=== PATIENT | male | born 1950 | race Caucasian/White ===

== ENCOUNTER 2017-11-24 13:29 | Outpatient (CLI) | payer MEDICARE | END 2017-11-24 13:30 | disposition home or self-care (01) | LOC: BICMRI 13:29 | PROVIDERS: ATTEND Orthopaedic Surgery | DX: M75.101 Unspecified rotator cuff tear or rupture of right shoulder, not specified as traumatic (principal); M75.81 Other shoulder lesions, right shoulder ==

== ENCOUNTER 2017-12-01 11:26 | Outpatient (CLI) | payer MEDICARE ==
[2017-12-01 13:03] LABS: #Basophils 0.1 thou/uL (0.0-0.2); #Eosinphils 0.2 thou/uL (0.0-0.7); #Lymphocytes 1.3 thou/uL (1.20-3.40); #Monocytes 0.5 thou/uL (0.11-0.59); #Neutrophils 2.5 thou/uL (1.40-6.50); %Basophils 1.5 % (0.0-1.0); %Eosinophils 4.5 % (0.0-10.0); %Lymphocytes 28.3 % (21.0-51.0); %Monocytes 10.3 % (0.0-10.0); %Neutrophils 55.3 % (42.0-75.0); Hemoglobin 15.5 g/dL (14.0-18.0); Mean Corpuscular HGB CONC 33.3 g/dL (32.0-36.0); Mean Corpuscular Hemoglobin 30.5 pg (27.0-31.0); Mean Corpuscular Volume 91.6 fl (80.0-94.0); Mean Platelet Volume 7.2 fL (7.4-10.4); Platelet Count 206 thou/uL (130-400); RBC Distribution Width 12.6 % (11.5-14.5); Red Blood Cell (RBC) Count 5.09 mill/uL (4.70-6.10); White Blood Cell (WBC) Count 4.5 thou/uL (4.8-10.8)
[2017-12-01 13:23] LABS: Anion Gap 9 mmol/L (10-20); BUN (Urea Nitrogen) 17 mg/dL (8.4-25.7); Calc. Creatinine Clearance 0 mL/min (70-130); Calcium 9.6 mg/dL (7.8-10.44); Carbon Dioxide 27 mmol/L (23-31); Chloride 103 mmol/L (98-107); Estimated GFR-MDRD Greater than 90; Glucose 102 mg/dL (80-115); Potassium 4.1 mmol/L (3.5-5.1); Sodium 135 mmol/L (136-145)
--- NOTE | 2017-12-01 14:11 | RAD ---
CHEST TWO VIEWS: History: Pre op. FINDINGS: Heart size and mediastinum are within normal limits. The lungs are clear of infiltrates. No significa nt bony findings. IMPRESSION: No active intrathoracic disease. POS: [facility]
--- NOTE | 2017-12-02 17:42 | EKG ---
Test Reason : Blood Pressure : / mmHG Vent. Rate : 046 BPM Atrial Rate : 046 BPM P-R Int : 122 ms QRS Dur : 096 ms QT Int : 474 ms P-R-T Axes : -17 018 024 degrees QTc Int : 414 ms Marked sinus bradycardia Nonspecific ST and T wave abnormality Abnormal ECG No previous ECGs available Confirmed by DR. Ramana DAVID ([id number]) on 12/02/2017 5:42:18 PM Referred By: LEVAR Confirmed By:DR. Ramana DAVID
== END 2017-12-01 11:27 | disposition home or self-care (01) ==
LOC: LABBT 11:26
PROVIDERS: ATTEND Orthopaedic Surgery
DX: Z01.818 Encounter for other preprocedural examination (principal); M75.101 Unspecified rotator cuff tear or rupture of right shoulder, not specified as traumatic
CPT/HCPCS: 71046; 80048; 85025; 93005; 93010

== ENCOUNTER 2017-12-09 06:11 | Day surgery (SDC) | payer MEDICARE ==
[2017-12-01 11:41] VITALS: BMI 27.0
[2017-12-09] MEDS ORDERED: Midazolam HCl 2 mg/2 ml Vial ONE (06:23)
[2017-12-09] MEDS ORDERED: Fentanyl 250 MCG/5 ML VIAL ONE ×2 (06:23→07:05)
[2017-12-09] MEDS ORDERED: Fentanyl 100 MCG/2 ML VIAL IV PRN (06:50)
[2017-12-09] MEDS ORDERED: Ropivacaine 0.2% 550 ML 550 ML NERVE BLCK SCH (06:50)
[2017-12-09] MEDS ORDERED: Promethazine HCl 25 MG/ML VIAL IM PRN (06:50)
[2017-12-09] MEDS ORDERED: HYDROcodone/Acetaminophen 10/325 mg Tablet PO PRN ×2 (06:50)
[2017-12-09] MEDS ORDERED: Zolpidem Tartrate 5 MG TAB PO PRN (06:50)
[2017-12-09] MEDS ORDERED: Ondansetron HCl/PF 4 MG/2 ML Vial IVP PRN (06:50)
[2017-12-09] MEDS ORDERED: Ketorolac Tromethamine 30 MG/ML VIAL IVP PRN (06:50)
[2017-12-09] MEDS ORDERED: traMADol HCl 50 MG TAB PO PRN ×2 (06:50)
[2017-12-09] MEDS ORDERED: HYDROmorphone 0.5 MG/0.5 ML SYRINGE ONE (07:05)
[2017-12-09] MEDS ORDERED: CEFAZOLIN/Water 2 GM/20 ML SYRINGE ONE (07:17)
--- NOTE | 2017-12-09 13:03 | OP ---
PREOPERATIVE DIAGNOSES: Rotator cuff tear and impingement. POSTOPERATIVE DIAGNOSES: Rotator cuff tear and impingement. SURGEON: Jn Petersen M.D. ANESTHESIA: General. PAINTER SIGN MAINTENANCE: Peter Hoyos PA-C. BLOOD LOSS: Minimal. SPECIMEN: None. DRAINS: None. COMPLICATIONS: None. DESCRIPTION OF PROCEDURE: The patient was taken to the operating room where general anesthesia was i nduced. He was placed in left lateral decubitus position. Right arm was prepped and draped in usual sterile fashion. He received Ancef preoperatively. Scope was placed in the glenohumeral joint. Bi ceps was in good condition and no significant arthritis. There was a small full-thickness rotator cu ff tear. Scope was then placed subacromial space. Anterior and inferior acromioplasty was performed . CA ligament was taken down. Extensive bursectomy was performed. I freshened up the greater tuber osity and freshened up from the bone just distal to the greater tuberosity, placed a single Arthrex c orkscrew suture anchor through the defect, placed two sutures through the rotator cuff, tied down wit h a good watertight repair then reinforces with a double row type repair using a SwiveLock device. S utures were tested with a probe and found to be taut. Shoulder was drained. Portals closed with nyl on suture and sterile dressings applied. There were no complications.
[2017-12-09] MEDS ORDERED: Ropivacaine 0.2% HCl/PF (40 MG/20 ML VIAL) ONE (14:35)
[2017-12-09] MEDS ORDERED: Ropivacaine 0.5% HCl/PF (150 MG/30 ML VIAL) ONE (14:35)
[2017-12-09] MEDS ORDERED: Ondansetron HCl/PF 4 MG/2 ML Vial ONE (15:02)
[2017-12-09] MEDS ORDERED: Glycopyrrolate 0.2 MG/ML 5 ML SYRINGE ONE (15:02)
[2017-12-09] MEDS ORDERED: Propofol 200 MG/20 ML VIAL ONE (15:02)
[2017-12-09] MEDS ORDERED: Lidocaine 1% PF 5 ML VIAL ONE (15:02)
[2017-12-09] MEDS ORDERED: Ketorolac Tromethamine 30 MG/ML VIAL ONE (15:02)
[2017-12-09] MEDS ORDERED: Dexamethasone 20 MG/5 ML VIAL ONE (15:02)
== END 2017-12-09 10:53 | disposition home or self-care (01) ==
LOC: SDC 06:11
PROVIDERS: ATTEND Orthopaedic Surgery
PROC: 0LM14ZZ Reattachment of Right Shoulder Tendon, Percutaneous Endoscopic Approach (ICD-10-PCS; principal; 2017-12-09)
PROC: 0RNJ4ZZ Release Right Shoulder Joint, Percutaneous Endoscopic Approach (ICD-10-PCS; 2017-12-09)
DX: M75.121 Complete rotator cuff tear or rupture of right shoulder, not specified as traumatic (principal); M75.41 Impingement syndrome of right shoulder; E11.9 Type 2 diabetes mellitus without complications; Z79.84 Long term (current) use of oral hypoglycemic drugs; Z79.899 Other long term (current) drug therapy
CPT/HCPCS: 29826; 29827; 97139; A4306; G8984; G8985; G8986; C1713; J1100; J1170; J1885; J2001; J2250; J2405; J2704; J2795; J3010

== ENCOUNTER 2022-01-08 10:47 | Outpatient (CLI) | payer MEDICARE | END 2022-01-08 10:48 | disposition home or self-care (01) | LOC: TBSIIMAG 10:47 | PROVIDERS: ATTEND Neurological Surgery | DX: M54.50 Low back pain, unspecified (principal); M47.816 Spondylosis without myelopathy or radiculopathy, lumbar region | CPT/HCPCS: 72040; 72100 ==

== ENCOUNTER 2022-01-26 13:09 | Outpatient (CLI) | payer MEDICARE | END 2022-01-26 13:10 | disposition home or self-care (01) | LOC: BICCT 13:09 | PROVIDERS: ATTEND Neurological Surgery | DX: M47.26 Other spondylosis with radiculopathy, lumbar region (principal) | CPT/HCPCS: 72110; 72131 ==

== ENCOUNTER 2022-02-27 14:02 | Outpatient (CLI) | payer MEDICARE ==
[2022-02-27 15:43] LABS: Anion Gap 14 mmol/L (10-20); BUN (Urea Nitrogen) 12 mg/dL (8.4-25.7); Calc. Creatinine Clearance 0 mL/min (70-130); Calcium 9.4 mg/dL (7.8-10.44); Carbon Dioxide 25 mmol/L (23-31); Chloride 105 mmol/L (98-107); Glucose 117 mg/dL (80-115); Potassium 4.2 mmol/L (3.5-5.1); Sodium 140 mmol/L (136-145)
== END 2022-02-27 14:03 | disposition home or self-care (01) ==
LOC: LABBT 14:02
PROVIDERS: ATTEND Neurological Surgery
DX: Z01.818 Encounter for other preprocedural examination (principal); M54.16 Radiculopathy, lumbar region; Z20.822 Contact with and (suspected) exposure to COVID-19
CPT/HCPCS: 80048; 93005; U0003; U0005; 93010

== ENCOUNTER 2022-03-04 08:35 | Day surgery (SDC) | payer MEDICARE ==
[2022-03-03 09:43] VITALS: BMI 29.0
[2022-03-04] MEDS ORDERED: Bupivacaine PF 0.5% 30 ML VIAL ONE (09:08)
[2022-03-04] MEDS ORDERED: Thrombin 5000 UNITS/5 ML VIAL ONE (09:08)
[2022-03-04] MEDS ORDERED: EPINEPHrine 1 MG/ML AMP ONE (09:08)
[2022-03-04] MEDS ORDERED: SUGAMMADEX SODIUM 200 MG/2 ML VIAL ONE (09:38)
[2022-03-04] MEDS ORDERED: Famotidine/PF 20 mg/2ml Vial ONE (09:38)
[2022-03-04] MEDS ORDERED: fentaNYL Citrate/PF 100 MCG/2 ML SYRINGE ONE ×2 (09:38→11:23)
[2022-03-04] MEDS ORDERED: Sodium Chloride 0.9% 100 ML ONE ×2 (09:43→13:56)
[2022-03-04] MEDS ORDERED: CEFAZOLIN 2 GM VIAL ONE ×2 (09:43→13:56)
[2022-03-04] MEDS ORDERED: Rocuronium Bromide 10 MG/ML (10ML VIAL) ONE (10:01)
[2022-03-04] MEDS ORDERED: Ketorolac Tromethamine 30 MG/ML VIAL ONE (10:01)
[2022-03-04] MEDS ORDERED: Metoclopramide HCl 10 MG/2 ML VIAL ONE (10:01)
[2022-03-04] MEDS ORDERED: PROPOFOL 200 MG/20 ML VIAL ONE (10:01)
[2022-03-04] MEDS ORDERED: Metoprolol Tartrate 5 MG/5 ML VIAL ONE (10:01)
[2022-03-04] MEDS ORDERED: Ondansetron PF 4 MG/2 ML Vial ONE (10:01)
[2022-03-04] MEDS ORDERED: Dexamethasone 20 MG/5 ML VIAL ONE (10:01)
[2022-03-04] MEDS ORDERED: PHENYLEPHRINE-NS 100 MCG/ML 10 ML SYRINGE ONE (10:01)
[2022-03-04] MEDS ORDERED: Lidocaine 1% PF 5 ML VIAL ONE (10:01)
[2022-03-04] MEDS ORDERED: Glycopyrrolate 0.2 MG/ML 5 ML SYRINGE ONE (10:01)
[2022-03-04] MEDS ORDERED: Fentanyl 100 MCG/2 ML VIAL ONE ×2 (12:53→13:03)
[2022-03-04] MEDS ORDERED: Tamsulosin HCl 0.4 MG CAP ONE (12:58)
[2022-03-04] MEDS ORDERED: hydrALAZINE 20 MG/ML VIAL ONE (13:10)
[2022-03-04] MEDS ORDERED: HYDROcodone/Acetaminophen 5/325 mg Tablet ONE (13:56)
== END 2022-03-04 14:43 | disposition home or self-care (01) ==
LOC: SDC 08:35
PROVIDERS: ATTEND Neurological Surgery
PROC: 0SG0071 Fusion of Lumbar Vertebral Joint with Autologous Tissue Substitute, Posterior Approach, Posterior Column, Open Approach (ICD-10-PCS; principal; 2022-03-04)
DX: M51.16 Intervertebral disc disorders with radiculopathy, lumbar region (principal); G89.4 Chronic pain syndrome; I10 Essential (primary) hypertension; F17.200 Nicotine dependence, unspecified, uncomplicated
CPT/HCPCS: 76000; C1713; C1768; J0171; J0360; J1100; J1885; J2405; J2704; J2765; J3010; J3490; S0020; S0028

== ENCOUNTER 2022-11-26 12:18 | Outpatient (CLI) | payer MEDICARE | END 2022-11-26 12:19 | disposition home or self-care (01) | LOC: TBSIIMAG 12:18 | PROVIDERS: ATTEND Neurological Surgery | DX: M54.50 Low back pain, unspecified (principal); M47.816 Spondylosis without myelopathy or radiculopathy, lumbar region; Z98.890 Other specified postprocedural states | CPT/HCPCS: 72100 ==

== ENCOUNTER 2022-12-22 12:56 | Outpatient (CLI) | payer MEDICARE | END 2022-12-22 12:57 | disposition home or self-care (01) | LOC: SCSMRI 12:56 | PROVIDERS: ATTEND Orthopaedic Surgery | DX: M54.50 Low back pain, unspecified (principal); M75.102 Unspecified rotator cuff tear or rupture of left shoulder, not specified as traumatic; S43.432A Superior glenoid labrum lesion of left shoulder, initial encounter; M47.816 Spondylosis without myelopathy or radiculopathy, lumbar region; M51.36 Other intervertebral disc degeneration, lumbar region; M48.061 Spinal stenosis, lumbar region without neurogenic claudication; M19.012 Primary osteoarthritis, left shoulder; Z98.1 Arthrodesis status | CPT/HCPCS: 70210; 72148; 72170 ==